=== PATIENT | male | born 1975 | race Caucasian/White ===

== ENCOUNTER 2017-11-20 23:41 | Emergency (ER) | payer BC ==
--- NOTE | 2017-11-21 00:07 | EDM.PDOC ---
ED HPI GENERAL MEDICAL PROBLEM - General Chief Complaint: Gastrointestinal Problem Stated Complaint: CONSTANT DIAHARIE Time Seen by Provider: 11/20/17 23:54 Source of Information: Reports: Patient History Limitations: Reports: No Limitations - History of Present Illness INITIAL COMMENTS - FREE TEXT/NARRATIVE: HISTORY AND PHYSICAL: History of present illness: 42-year-old male presenting to the emergency department chief complaint of abdominal pain with diarrhea 3 days. Patient states that on began to have some subjective fevers. These fevers were associated chills and carried onto Tuesday at which time he began to have some episodes of diarrhea. This continued throughout the entire day. Diarrhea is loose with mucus mustered color. He denies any bloody stool or dark tarry stool. Patient states that on Tuesday he continued to have diarrhea but his fevers had subsided. He has also had some lower abdominal pain that he states is better after he has a bowel movement. It is crampy in nature. He denies history of abdominal surgery. Currently denies any chest pain, palpitations, shortness of breath, syncopal, or focal neurologic deficits. Patient is generally healthy and takes no daily medications. He does have an allergy to sulfa. On initial exam patient has some mild suprapubic tenderness but no right lower quadrant or left lower quadrant pain. CBC did show mild leukocytosis of 13.8 K, CMP revealed mild hypokalemia occurred 3.3, lipase unremarkable CT abdomen as well as stool culture ending Of note patient did have one bowel movement that on inspection did have some bloody flakes. It was heme occult positive. CTD abdomen did reveal diffuse colonic wall thickening consistent with pancolitis. There was also cholelithiasis with apparent mild gallbladder wall prominence. Patient had no right upper quadrant pain on exam. There was an inadvertent finding of a 5 mm right middle lobe nodular opacity Campylobacter and was positive for the rest of the stool is pending. Review of systems: As per history of present illness and below otherwise all systems reviewed and negative. Past medical history: As per history of present illness and as reviewed below otherwise noncontributory. Surgical history: As per history of present illness and as reviewed below otherwise noncontributory. Social history: No reported history of drug or alcohol abuse. Family history: As per history of present illness and as reviewed below otherwise noncontributory. Physical exam: HEENT: Atraumatic, normocephalic, pupils reactive, negative for conjunctival pallor or scleral icterus, mucous membranes moist, throat clear, neck supple, nontender, trachea midline. Lungs: Clear to auscultation, breath sounds equal bilaterally, chest nontender. Heart: S1S2, regular, negative for clicks, rubs, or JVD. Abdomen: Soft, nondistended, mild suprapubic tenderness. Negative for masses or hepatosplenomegaly. Negative for costovertebral tenderness. Pelvis: Stable nontender. Genitourinary: Deferred. Rectal: Deferred. Extremities: Atraumatic, negative for cords or calf pain. Neurovascular unremarkable. Neuro: Awake, alert, oriented. Cranial nerves II through XII unremarkable. Cerebellum unremarkable. Motor and sensory unremarkable throughout. Exam nonfocal. Diagnostics: CBC, CMP, lipase, stool culture, CT abdomen and pelvis Therapeutics: 1 L NS x2 40 meq KCl po x 1 Impression: Abdominal pain Diarrhea Pancolitis Campylobacter gastroenteritis Plan: Secondary to the above findings of pancolitis as well as Campylobacter positive stool with still pending stool culture. I did treat the patient with Cipro and Flagyl. In addition, I did set him up to see general surgery for follow-up on his gallbladder as well as his pancolitis. Patient was discharged in good condition with instructions to follow-up with general surgery as well as return in the emergency department if he had any new or worsening symptoms. Definitive disposition and diagnosis as appropriate pending reevaluation and review of above. - Related Data Allergies Allergy/AdvReac Type Severity Reaction Status Date / Time Sulfa (Sulfonamide Allergy Hives Verified 11/21/17 00:01 Antibiotics) Home Meds: Home Meds . [No Known Home Meds] 11/21/17 [History] Past Medical History - Past Health History Medical/Surgical History: Denies Medical/Surgical History Social & Family History - Tobacco Use Smoking Status *Q: Current Every Day Smoker Years of Tobacco use: 15 Packs/Tins Daily: 0.5 ED ROS GENERAL - Review of Systems Review Of Systems: ROS reveals no pertinent complaints other than HPI. ED EXAM, GENERAL - Physical Exam Exam: See Below Course - Vital Signs Last Recorded V/S: Last Vital Signs Temp 98.6 F 11/21/17 00:06 Pulse 77 11/21/17 03:23 Resp 12 11/21/17 03:23 BP 114/77 11/21/17 03:23 Pulse Ox 98 11/21/17 03:23 - Orders/Labs/Meds Orders: Active Orders 24 hr Category Date Time Status Hemoccult [Fecal Occult Blood Collection] [RC] Care 11/21/17 03:05 Active ASDIRECTED Abdomen Pelvis w Cont [CT] Stat Exams 11/21/17 00:27 Taken CULTURE BLOOD [BC] Stat Lab 11/21/17 01:00 Received CULTURE BLOOD [BC] Stat Lab 11/21/17 01:10 Received CULTURE STOOL + CAMPY+SHIGATOX [RM] Stat Lab 11/21/17 03:05 Ordered CULTURE URINE [RM] Stat Lab 11/21/17 01:55 Ordered UA W/MICROSCOPIC [URIN] Stat Lab 11/21/17 01:55 Ordered Sodium Chloride 0.9% [Normal Saline] 1,000 ml Med 11/21/17 03:13 Active IV STAT Sodium Chloride 0.9% [Saline Flush] Med 11/21/17 00:27 Active 2.5 ml FLUSH ASDIRECTED PRN Blood Culture x2 Reflex Set [OM.PC] Stat Oth 11/21/17 00:59 Ordered Medication Orders Sodium Chloride (Normal Saline) 1,000 mls @ 999 mls/hr IV STAT ONE Stop: 11/21/17 04:13 Last Admin: 11/21/17 03:20 Dose: 999 mls/hr Sodium Chloride (Saline Flush) 2.5 ml FLUSH ASDIRECTED PRN PRN Reason: Keep Vein Open Last Admin: 11/21/17 00:39 Dose: 2.5 ml Labs: Laboratory Tests 11/21/17 11/21/17 11/21/17 Range/Units 00:27 00:53 01:00 WBC 13.86 H (4.0-11.0) K/uL RBC 5.17 (4.50-5.90) M/uL Hgb 15.5 (13.0-17.0) g/dL Hct 43.0 (38.0-50.0) % MCV 83.2 (80.0-98.0) fL MCH 30.0 (27.0-32.0) pg MCHC 36.0 (31.0-37.0) g/dL RDW Std Deviation 36.4 (28.0-62.0) fl RDW Coeff of Cherry 12 (11.0-15.0) % Plt Count 214 (150-400) K/uL MPV 9.90 (7.40-12.00) fL Neut % (Auto) 77.6 (48.0-80.0) % Lymph % (Auto) 10.3 L (16.0-40.0) % [place] % (Auto) 10.9 (0.0-15.0) % Eos % (Auto) 1.1 (0.0-7.0) % Baso % (Auto) 0.1 (0.0-1.5) % Neut # (Auto) 10.8 H (1.4-5.7) K/uL Lymph # (Auto) 1.4 (0.6-2.4) K/uL [place] # (Auto) 1.5 H (0.0-0.8) K/uL Eos # (Auto) 0.2 (0.0-0.7) K/uL Baso # (Auto) 0.0 (0.0-0.1) K/uL Lactate 1.0 (0.20-2.00) mmol/L Sodium 133 L (136-148) mmol/L Potassium 3.3 L (3.5-5.1) mmol/L Chloride 97 L (98-107) mmol/L Carbon Dioxide 25.6 (21.0-32.0) mmol/L BUN 13 (7.0-18.0) mg/dL Creatinine 1.1 (0.8-1.3) mg/dL Est Cr Clr Drug Dosing 97.98 mL/min Estimated GFR (MDRD) > 60.0 ml/min Glucose 98 (74-106) mg/dL Calcium 8.7 (8.5-10.1) mg/dL Total Bilirubin 0.5 (0.2-1.0) mg/dL AST 16 (15-37) IU/L ALT 25 (14-63) IU/L Alkaline Phosphatase 72 (46-116) U/L Total Protein 7.5 (6.4-8.2) g/dL Albumin 3.5 (3.4-5.0) g/dL Globulin 4.0 H (2.0-3.5) g/dL Albumin/Globulin Ratio 0.9 L (1.3-2.8) Lipase 242 (73-393) U/L Urine Color Urine Appearance Urine pH (5.0-8.0) Ur Specific [place] (1.001-1.035) Urine Protein (NEGATIVE) mg/dL Urine Glucose (UA) (NEGATIVE) mg/dL Urine Ketones (NEGATIVE) mg/dL Urine Occult Blood (NEGATIVE) Urine Nitrite (NEGATIVE) Urine Bilirubin (NEGATIVE) Urine Urobilinogen (<2.0) EU/dL Ur Leukocyte Esterase (NEGATIVE) Urine RBC (0-2/HPF) Urine WBC (0-5/HPF) Ur Epithelial Cells (NONE-FEW) Urine Bacteria (NEGATIVE) 11/21/17 Range/Units 01:55 WBC (4.0-11.0) K/uL RBC (4.50-5.90) M/uL Hgb (13.0-17.0) g/dL Hct (38.0-50.0) % MCV (80.0-98.0) fL MCH (27.0-32.0) pg MCHC (31.0-37.0) g/dL RDW Std Deviation (28.0-62.0) fl RDW Coeff of Cherry (11.0-15.0) % Plt Count (150-400) K/uL MPV (7.40-12.00) fL Neut % (Auto) (48.0-80.0) % Lymph % (Auto) (16.0-40.0) % [place] % (Auto) (0.0-15.0) % Eos % (Auto) (0.0-7.0) % Baso % (Auto) (0.0-1.5) % Neut # (Auto) (1.4-5.7) K/uL Lymph # (Auto) (0.6-2.4) K/uL [place] # (Auto) (0.0-0.8) K/uL Eos # (Auto) (0.0-0.7) K/uL Baso # (Auto) (0.0-0.1) K/uL Lactate (0.20-2.00) mmol/L Sodium (136-148) mmol/L Potassium (3.5-5.1) mmol/L Chloride (98-107) mmol/L Carbon Dioxide (21.0-32.0) mmol/L BUN (7.0-18.0) mg/dL Creatinine (0.8-1.3) mg/dL Est Cr Clr Drug Dosing mL/min Estimated GFR (MDRD) ml/min Glucose (74-106) mg/dL Calcium (8.5-10.1) mg/dL Total Bilirubin (0.2-1.0) mg/dL AST (15-37) IU/L ALT (14-63) IU/L Alkaline Phosphatase (46-116) U/L Total Protein (6.4-8.2) g/dL Albumin (3.4-5.0) g/dL Globulin (2.0-3.5) g/dL Albumin/Globulin Ratio (1.3-2.8) Lipase (73-393) U/L Urine Color YELLOW Urine Appearance CLEAR Urine pH 6.0 (5.0-8.0) Ur Specific [place] <= 1.005 (1.001-1.035) Urine Protein NEGATIVE (NEGATIVE) mg/dL Urine Glucose (UA) NEGATIVE (NEGATIVE) mg/dL Urine Ketones NEGATIVE (NEGATIVE) mg/dL Urine Occult Blood MODERATE (NEGATIVE) Urine Nitrite NEGATIVE (NEGATIVE) Urine Bilirubin NEGATIVE (NEGATIVE) Urine Urobilinogen 0.2 (<2.0) EU/dL Ur Leukocyte Esterase NEGATIVE (NEGATIVE) Urine RBC 1-2 (0-2/HPF) Urine WBC 0-1 (0-5/HPF) Ur Epithelial Cells NOT SEEN (NONE-FEW) Urine Bacteria RARE (NEGATIVE) Meds: Medications Generic Name Dose Route Start Last Admin Trade Name Fremagalys PRN Reason Stop Dose Admin Sodium Chloride 1,000 mls @ 999 mls/hr 11/21/17 03:13 11/21/17 03:20 Normal Saline IV 11/21/17 04:13 999 mls/hr STAT ONE Administration Sodium Chloride 2.5 ml 11/21/17 00:27 11/21/17 00:39 Saline Flush FLUSH 2.5 ml ASDIRECTED PRN Administration Keep Vein Open Discontinued Medications Generic Name Dose Route Start Last Admin Trade Name Freq PRN Reason Stop Dose Admin Sodium Chloride 1,000 mls @ 999 mls/hr 11/21/17 00:12 11/21/17 00:38 Normal Saline IV 11/21/17 01:12 999 mls/hr STAT ONE Administration Iopamidol 100 ml 11/21/17 02:37 11/21/17 02:38 Isovue Multipack-370 (76%) IVPUSH 11/21/17 02:38 100 ml ONETIME STA Administration Ondansetron HCl 4 mg 11/21/17 00:27 11/21/17 00:42 Zofran IVPUSH 11/21/17 00:28 4 mg ONETIME ONE Administration Potassium Chloride 40 meq 11/21/17 03:01 11/21/17 03:20 Klor-Con M20 PO 11/21/17 03:02 40 meq ONETIME ONE Administration Departure - Departure Time of Disposition: 04:06 Disposition: Home, Self-Care 01 Condition: Good Clinical Impression: Campylobacter gastroenteritis, Pancolitis Abdominal pain Qualifiers: Abdominal location: lower abdomen, unspecified Qualified Code(s): R10.30 - Lower abdominal pain, unspecified - Discharge Information Referrals: PCP,None [Primary Care Provider] - Forms: ED Department Discharge Additional Instructions: My general discharge The following information is given to patients seen in the emergency department who are being discharged to home. This information is to outline your options for follow-up care. We provide all patients seen in our emergency department with a follow-up referral. The need for follow-up, as well as the timing and circumstances, are variable depending upon the specifics of your emergency department visit. If you don't have a primary care physician on staff, we will provide you with a referral. We always advise you to contact your personal physician following an emergency department visit to inform them of the circumstance of the visit and for follow-up with them and/or the need for any referrals to a consulting specialist. The emergency department will also refer you to a specialist when appropriate. This referral assures that you have the opportunity for follow-up care with a specialist. All of these measure are taken in an effort to provide you with optimal care, which includes your follow-up. Under all circumstances we always encourage you to contact your private physician who remains a resource for coordinating your care. When calling for follow-up care, please make the office aware that this follow-up is from your recent emergency room visit. If for any reason you are refused follow-up, please contact the [facility] Emergency Department at and asked to speak to the emergency department charge nurse. My General Surgery [facility] Specialty Care - General Surgery Professional Building [address] [place] [address], [address] [place] [address] Please follow-up with general surgery as we discussed. Be sure to tell them you were seen in the emergency department and they wish for you to be seen as soon as possible. Take antibiotics as prescribed. Return to emergency department if any new or worsening symptoms. - My Orders Last 24 Hours: My Active Orders 11/21/17 00:27 Abdomen Pelvis w Cont [CT] Stat Sodium Chloride 0.9% [Saline Flush] 2.5 ml FLUSH ASDIRECTED PRN 11/21/17 00:59 Blood Culture x2 Reflex Set [OM.PC] Stat 11/21/17 01:00 CULTURE BLOOD [BC] Stat 11/21/17 01:10 CULTURE BLOOD [BC] Stat 11/21/17 01:55 CULTURE URINE [RM] Stat UA W/MICROSCOPIC [URIN] Stat 11/21/17 03:05 Hemoccult [Fecal Occult Blood Collection] [RC] ASDIRECTED CULTURE STOOL + CAMPY+SHIGATOX [RM] Stat 11/21/17 03:13 Sodium Chloride 0.9% [Normal Saline] 1,000 ml IV STAT - Assessment/Plan Last 24 Hours: My Active Orders 11/21/17 00:27 Abdomen Pelvis w Cont [CT] Stat Sodium Chloride 0.9% [Saline Flush] 2.5 ml FLUSH ASDIRECTED PRN 11/21/17 00:59 Blood Culture x2 Reflex Set [OM.PC] Stat 11/21/17 01:00 CULTURE BLOOD [BC] Stat 11/21/17 01:10 CULTURE BLOOD [BC] Stat 11/21/17 01:55 CULTURE URINE [RM] Stat UA W/MICROSCOPIC [URIN] Stat 11/21/17 03:05 Hemoccult [Fecal Occult Blood Collection] [RC] ASDIRECTED CULTURE STOOL + CAMPY+SHIGATOX [RM] Stat 11/21/17 03:13 Sodium Chloride 0.9% [Normal Saline] 1,000 ml IV STAT
[2017-11-21] MEDS ORDERED: Sodium Chloride 0.9% 1,000 ML IV ONE ×2 (00:12→03:13)
[2017-11-21] MEDS ORDERED: Ondansetron 4 MG/2 ML SDV IVPUSH ONE (00:27)
[2017-11-21] MEDS ORDERED: Sodium Chloride 0.9% 2.5 ML Syringe FLUSH PRN (00:27)
[2017-11-21 01:13] LABS: CHLORIDE,CL 97 mmol/L (98-107); SODIUM,NA 133 mmol/L (136-148)
[2017-11-21] MEDS ORDERED: Iopamidol 755 MG/ML 500 ML Multipack Bottle IVPUSH STA (02:37)
[2017-11-21] MEDS ORDERED: Potassium Chloride 20 MEQ Tab.ER PO ONE (03:01)
--- NOTE | 2017-11-21 14:32 | CT ---
EXAM DATE: 11/20/17 PATIENT'S AGE: 42 Patient: JESI TRONCOSO Facility: [place], [place] Site . Site : [id number] Study: CT Abdomen/Pelvis [id number] 2:23:34 AM Ordering Physician: Hussein Brar Final Report: CLINICAL INDICATION: Lower abdominal pain with fever. TECHNIQUE: Axial intravenously infused CT cuts were performed from above the diaphragm to the ischial tuberosities. 100 mL of Isovue-370 has been injected intravenously. FINDINGS: There is severe diffuse mucosal edema of the entire colon. Terminal ileum appears be involved with the inflammation and therefore the findings are suggestive of Crohn disease. There are the gallstones within the gallbladder measuring up to 2.1 cm in diameter. There may be gallbladder wall thickening. The liver, spleen, pancreas, adrenals and kidneys appear normal. There is no free intraperitoneal air fluid. There are no enlarged retroperitoneal or mesenteric lymph nodes. The urinary bladder and seminal vesicles appear normal. There is mild prostate enlargement. There are no enlarged iliac or inguinal lymph nodes. There is a 5 millimeter noncalcified nodule within the lateral segment right middle lobe. IMPRESSION: 1. There is mucosal thickening throughout the colon. The terminal ileum is also likely involvement and therefore the findings are suggestive of active Crohn disease although infectious etiologies are also possible. 2. Cholelithiasis. There may be gallbladder wall thickening. Consider gallbladder sonography. 3. 3. There is a 5 millimeter noncalcified nodule within the lateral segment of the right middle lobe. If the patient is not high risk for malignancy, further follow-up is not required. Please note that all CT scans at this facility use dose modulation, iterative reconstruction, and/or weight-based dosing when appropriate to reduce radiation dose to as low as reasonably achievable. Dictated by John Chilel MD @ Nov 21 2017 9:21AM (Electronic Signature) Report Signed by Proxy. DEBI
== END 2017-11-21 04:50 | disposition home or self-care (01) ==
LOC: MW.ED 23:41
DX: A04.5 Campylobacter enteritis (principal); K51.00 Ulcerative (chronic) pancolitis without complications; F17.210 Nicotine dependence, cigarettes, uncomplicated; Z88.2 Allergy status to sulfonamides
CPT/HCPCS: 74177; 80053; 81001; 83605; 83690; 85025; 87040; 87046; 87086; 96361; 96374; 99284; A9270; J2405; J7040; Q9967; 99283